=== PATIENT | female | born 1990 | race African-American/Black ===

== ENCOUNTER 2024-03-17 21:15 | Emergency (ER) | payer BC ==
[2024-03-17 21:22] VITALS: BP 151/72; PULSE 103; RESP 18; TEMP 97.8; BMI 29.2
[2024-03-17 22:51] LABS: BASO % 1.1 % (0-2.0); EOS % 0.5 % (0-4.5); HEMATOCRIT 37.4 % (32.4-45.2); HEMOGLOBIN 12.7 GM/dL (10.7-15.3); LYMPH % 33.7 % (8-40); MCH 27.6 pg (25.7-33.7); MCHC 33.9 g/dl (32.0-36.0); MEAN CELL VOLUME 81.6 fl (80-96); MEAN PLT VOLUME 7.8 fl (7.5-11.1); MONO % 8.3 % (3.8-10.2); NEUT % 56.4 % (42.8-82.8); PLATELET COUNT 313 10^3/uL (134-434); RBC 4.59 M/mm3 (3.60-5.2); RDW 14.3 % (11.6-15.6); WHITE BLOOD COUNT 6.7 K/mm3 (4.0-10.0)
[2024-03-17 23:14] LABS: POTASSIUM 4.2 mmol/L (3.5-5.1)
[2024-03-17 23:16] LABS: CALCIUM 9.5 mg/dL (8.5-10.1)
[2024-03-17 23:17] LABS: ALBUMIN 3.7 g/dl (3.4-5.0); BLOOD UREA NITROGEN 11.6 mg/dL (7-18)
[2024-03-17 23:21] LABS: BILIRUBIN,TOTAL 0.4 mg/dL (0.2-1)
[2024-03-17 23:22] LABS: TOT PROT 7.8 g/dl (6.4-8.2)
[2024-03-18 00:11] LABS: HIV INTERPRETATION NEGATIVE (NEGATIVE)
== END 2024-03-18 00:24 | disposition home or self-care (01) ==
LOC: JER 21:15
DX: R07.2 Precordial pain (principal); Z20.822 Contact with and (suspected) exposure to COVID-19
CPT/HCPCS: 0241U-QW; 36415; 80053; 83735; 84484; 84703; 85025; 85379; 86803; 87389; 93005; 93010; 99284-25